=== PATIENT | male | born 1995 | race Caucasian/White ===

== ENCOUNTER 2019-08-02 13:56 | Inpatient (IN) | payer OTHER ==
[2019-08-02 15:45] VITALS: BMI 27.0
--- NOTE | 2019-08-02 16:51 | HP ---
CIWA Score - Admission Criteria [facility] Guidelines: Admission for Medically Managed Detox: Requires at least one of the followin. CIWA greater than 12 2. Seizures within the past 24 hours 3. Delirium tremens within the past 24 hours 4. Hallucinations within the past 24 hours 5. Acute intervention needed for co occurring medical disorder 6. Acute intervention needed for co occurring psychiatric disorder 7. Severe withdrawal that cannot be handled at a lower level of care (continued vomiting, continued diarrhea, abnormal vital signs) requiring intravenous medication and/or fluids 8. Admission ROS [facility] - HPI Chief Complaint: rehab from for crystal meth use Allergies/Adverse Reactions: Allergies Allergy/AdvReac Type Severity Reaction Status Date / Time No Known Allergies Allergy Verified 08/02/19 15:39 - Ebola screening Have you traveled outside of the country in the last 21 days: No Have you had contact with anyone from an Ebola affected area: No Do you have a fever: No - Review of Systems Constitutional: No Symptoms Reported EENT: reports: No Symptoms Reported Respiratory: reports: No Symptoms reported Cardiac: reports: No Symptoms Reported GI: reports: No Symptoms Reported : reports: No Symptoms Reported Musculoskeletal: reports: No Symptoms Reported Integumentary: reports: No Symptoms Reported Neuro: reports: No Symptoms reported Endocrine: reports: No Symptoms Reported Hematology: reports: No Symptoms Reported Psychiatric: reports: No Sypmtoms Reported Other Systems: Reviewed and Negative Patient History - Patient Medical History Hx Human Immunodeficiency Virus (HIV): No (tested HIV neg) - Patient Surgical History Hx Abdominal Surgery: Yes (gastric sleeve) - Smoking Cessation Smoking history: Never smoked - Substance & Tx. History Hx Alcohol Use: Yes Hx Substance Use: Yes Hx Substance Use Treatment: Yes - Substances abused Crystal meth Substance route: Smoking Frequency: Daily Amount used: 1 BAG $120 Age of first use: 20 Date of last use: 07/31/19 Admission Physical Exam [facility] - Vital Signs Vital Signs: Vital Signs - 24 hr 08/02/19 15:35 Temperature 99.3 F Pulse Rate 98 H Respiratory 18 Rate Blood Pressure 138/80 Breathalyzer - Breathalyzer Breathalyzer: 0 Urine Drug Screen - Test Device Lot number: [id number] Expiration date: 03/28/21 - Control Is test valid?: Yes - Results Drug screen NEGATIVE: No Urine drug screen results: MET-Methamphetamine, BZO-Benzodiazepines Inpatient Rehab Admission - Rehab Decision to Admit Inpatient rehab admission?: Yes - Initial Determination Are CD services needed?: Yes Free of communicable disease: Yes Not in need of hospitalization: Yes - Rehab Admission Criteria Previous failed treatment: Yes Poor recovery environment: Yes Comorbidities: Yes Lacks judgement: Yes Patient is meeting Inpatient Rehab admission criteria:: Yes (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
[2019-08-02] MEDS ORDERED: MAGNESIUM HYDROX 2400MG/30ML ORAL SUSPENSION 30 ML CUP PO PRN (16:59)
[2019-08-02] MEDS ORDERED: hydrOXYzine PAMOATE 25 MG CAPSULE (FP) PO PRN (16:59)
[2019-08-02] MEDS ORDERED: MENTHOL/PHENOL 1 EACH UD MM PRN (16:59)
[2019-08-02] MEDS ORDERED: LOPERAMIDE HCL 2 MG CAPSULE PO PRN (16:59)
[2019-08-02] MEDS ORDERED: IBUPROFEN 400 MG TABLET (FP) PO PRN (16:59)
[2019-08-02] MEDS ORDERED: guaiFENesin 200 MG/10 ML 10 ML UNIT-DOSE CUPS PO PRN (16:59)
[2019-08-02] MEDS ORDERED: P-EPHED 60MG/TRIPROLIDI 2.5MG TABLET PO PRN (16:59)
[2019-08-02] MEDS ORDERED: ACETAMINOPHEN 325 MG TABLET (FP) PO PRN (16:59)
[2019-08-02] MEDS ORDERED: MAG HYDROX/AL HYDROX/SIMETH 30 ML UNIT-DOSE CUP PO PRN (16:59)
[2019-08-02] MEDS ORDERED: MAGNESIUM CITRATE 300 ML BOTTLE PO PRN (16:59)
[2019-08-02] MEDS ORDERED: PT OWN MED DRAWER 7, Y5N ONE ×2 (18:22→18:23)
[2019-08-02] MEDS ORDERED: TUBERCULIN PPD 5 TU/0.1ML VIAL ID ONE (18:28)
[2019-08-02] MEDS: THIAMINE HCL 100 MG TABLET (FP) PO SCH (21:28)
[2019-08-02] MEDS ORDERED: MELATONIN 5 MG TABLETS PO PRN (22:00)
[2019-08-03 06:59] VITALS: TEMP 97.2
[2019-08-03] MEDS: PRENATAL VITAMINS W/ FOLIC ACID TABLET (FP) PO SCH (10:02)
[2019-08-03 10:40] LABS: URINE APPEARANCE COUDY; URINE BILIRUBIN NEGATIVE (NEGATIVE); URINE COLOR YELLOW; URINE GLUCOSE (UA) NEGATIVE (NEGATIVE); URINE KETONE NEGATIVE (NEGATIVE)
[2019-08-03 10:41] LABS: PH,URINE 6.5 (5.0-8.0); URINE LEUK ESTERASE NEGATIVE (NEGATIVE); URINE NITRITE NEGATIVE (NEGATIVE); URINE PROTEIN NEGATIVE (NEGATIVE); URINE RBC 13.4 /hpf (0-4); URINE UROBILINOGEN 0.2 mg/dL (0.2-1.0)
[2019-08-03 10:42] LABS: EPI CELLS 43.3 /HPF (0-5/HPF); HYALINE CASTS 2076.84 /lpf (0-8); URINE BACTERIA 5.3 /hpf (NEGATIVE); URINE WBC 14.8 /hpf (0-5)
[2019-08-03 10:54] LABS: URINE CRYSTALS 4 /hpf
--- NOTE | 2019-08-03 11:43 | PN ---
S Progress Note Note: Pt states that melatonin made him sleepy. No other complaints Vital Signs - 24 hr 08/02/19 08/03/19 08/03/19 15:35 00:30 03:30 Temperature 99.3 F Pulse Rate 98 H Respiratory 18 18 18 Rate Blood Pressure 138/80 08/03/19 06:58 Temperature 97.2 F L Pulse Rate 79 Respiratory 18 Rate Blood Pressure 118/80 Laboratory Tests 08/03/19 08:00 Urine Color Yellow Urine Appearance Coudy Urine pH 6.5 Ur Specific [place] 1.022 Urine Protein Negative Urine Glucose (UA) Negative Urine Ketones Negative Urine Blood Negative Urine Nitrite Negative Urine Bilirubin Negative Urine Urobilinogen 0.2 Ur Leukocyte Esterase Negative Urine WBC (Auto) 14.8 Urine RBC (Auto) 13.4 Urine Casts (Auto) 2076.84 U Pathogenic Cast Auto None seen U Epithel Cells (Auto) 43.3 U Sm Round Cell (Auto) None seen Urine Crystals (Auto) 4 Urine Bacteria (Auto) 5.3 a/p MUD: continue supportive care melatonin prn
[2019-08-03] MEDS ORDERED: PNEUMOC 13-VAL CONJ-DIP CRM/PF 0.5 ML DISP.SYRIN IM ONE (12:00)
[2019-08-03] MEDS ORDERED: FLU VACCINE QUAD 60 MCG/0.5 ML (MDV 19-20) IM ONE (12:00)
[2019-08-03 12:21] LABS: HEMATOCRIT 37.5 % (35.4-49); HEMOGLOBIN 12.6 GM/dL (11.7-16.9); MCH 31.4 pg (25.7-33.7); MCHC 33.7 g/dl (32.0-35.9); MEAN CELL VOLUME 93.1 fl (80-96); MEAN PLT VOLUME 7.7 fl (7.5-11.1); PLATELET COUNT 296 K/MM3 (134-434); RBC 4.03 M/mm3 (4.00-5.60); RDW 14.2 % (11.9-15.9); WHITE BLOOD COUNT 7.7 K/mm3 (4.0-10.0)
[2019-08-03 12:43] LABS: BILIRUBIN,TOTAL 0.4 mg/dL (0.2-1); BLOOD UREA NITROGEN 13.7 mg/dL (7-18); CALCIUM 8.7 mg/dL (8.5-10.1); CREATININE 0.6 mg/dL (0.55-1.3); POTASSIUM 4.3 mmol/L (3.5-5.1); TOT PROT 5.8 g/dl (6.4-8.2)
[2019-08-03] MEDS: THIAMINE HCL 100 MG TABLET (FP) PO SCH (21:29)
[2019-08-04 06:30] VITALS: BP 126/70; PULSE 98
[2019-08-04] MEDS: PRENATAL VITAMINS W/ FOLIC ACID TABLET (FP) PO SCH (09:54)
[2019-08-04 12:01] LABS: RPR REACTIVE 1:2 (NONREACTIVE)
[2019-08-04 14:21] LABS: TREPONEMA ANTIBODY REACTIVE (NONREACTIVE)
--- NOTE | 2019-08-04 16:14 | PN ---
[facility] Progress Note Note: Patient seen for +MHA and RPR 1:2. Patient was admitted to [facility] one week ago. Facility called to verify lab results: RPR 1:16, MHA positive. Patient reports being treated for Syphilis at [facility] 3 weeks ago with PCN injection. Patient asymptomatic, no further treatment warranted. Vital Signs Temperature 97.2 F L 08/04/19 06:29 Pulse Rate 98 H 08/04/19 06:29 Respiratory Rate 18 08/04/19 06:29 Blood Pressure 126/70 08/04/19 06:29 O2 Sat by Pulse Oximetry (%) Laboratory Tests 08/03/19 08/03/19 08/03/19 08:00 08:15 08:15 WBC 7.7 RBC 4.03 Hgb 12.6 Hct 37.5 MCV 93.1 MCH 31.4 MCHC 33.7 RDW 14.2 Plt Count 296 MPV 7.7 Sodium 141 Potassium 4.3 Chloride 108 H Carbon Dioxide 29 Anion Gap 5 L BUN 13.7 Creatinine 0.6 Est GFR (CKD-EPI)AfAm 161.96 Est GFR (CKD-EPI)NonAf 139.74 Random Glucose 81 Calcium 8.7 Total Bilirubin 0.4 AST 11 L ALT 18 Alkaline Phosphatase 81 Total Protein 5.8 L Albumin 3.0 L Urine Color Yellow Urine Appearance Coudy Urine pH 6.5 Ur Specific [place] 1.022 Urine Protein Negative Urine Glucose (UA) Negative Urine Ketones Negative Urine Blood Negative Urine Nitrite Negative Urine Bilirubin Negative Urine Urobilinogen 0.2 Ur Leukocyte Esterase Negative Urine WBC (Auto) 14.8 Urine RBC (Auto) 13.4 Urine Casts (Auto) 2076.84 U Pathogenic Cast Auto None seen U Epithel Cells (Auto) 43.3 U Sm Round Cell (Auto) None seen Urine Crystals (Auto) 4 Urine Bacteria (Auto) 5.3 RPR Titer T.pallidum Ab (MHA) HIV 1&2 Antibody Screen HIV P24 Antigen 08/03/19 08/03/19 08:15 08:15 WBC RBC Hgb Hct MCV MCH MCHC RDW Plt Count MPV Sodium Potassium Chloride Carbon Dioxide Anion Gap BUN Creatinine Est GFR (CKD-EPI)AfAm Est GFR (CKD-EPI)NonAf Random Glucose Calcium Total Bilirubin AST ALT Alkaline Phosphatase Total Protein Albumin Urine Color Urine Appearance Urine pH Ur Specific New Site Urine Protein Urine Glucose (UA) Urine Ketones Urine Blood Urine Nitrite Urine Bilirubin Urine Urobilinogen Ur Leukocyte Esterase Urine WBC (Auto) Urine RBC (Auto) Urine Casts (Auto) U Pathogenic Cast Auto U Epithel Cells (Auto) U Sm Round Cell (Auto) Urine Crystals (Auto) Urine Bacteria (Auto) RPR Titer Reactive 1:2 H T.pallidum Ab (MHA) Reactive HIV 1&2 Antibody Screen Negative HIV P24 Antigen Negative
== END 2019-08-04 20:10 | disposition left against medical advice (07) | DRG 770 ==
LOC: YASAS 13:56 → Y3W 17:07
PROVIDERS: ADMIT Neuromusculoskeletal Medicine & OMM; ATTEND Neuromusculoskeletal Medicine & OMM
PROC: HZ42ZZZ Group Counseling for Substance Abuse Treatment, Cognitive-Behavioral (ICD-10-PCS; principal; 2019-08-02)
DX: F15.20 Other stimulant dependence, uncomplicated (principal); Z86.19 Personal history of other infectious and parasitic diseases; Z98.84 Bariatric surgery status
CPT/HCPCS: 36415; 80053; 81003; 85027; 86593; 86780; 87389; G0008; Q2036